=== PATIENT | female | born 1995 | race Caucasian/White ===

== ENCOUNTER 2021-11-24 19:26 | Emergency (ER) | payer MEDICAID, SELFPAY ==
--- NOTE | ~2021-11-24 | CT_ITS ---
EXAMINATION: CT HEAD WITHOUT CONTRAST CLINICAL INFORMATION: Headache, rule out bleed, mass effect COMPARISON: None TECHNIQUE: Contiguous axial imaging was performed from the skull base to vertex without intravenous administration of contrast. This CT examination was performed using dose optimization techniques as appropriate, variously including the following: *Automated exposure control *Adjustment of mA and/or kV according to patient size (this includes techniques or standardized protocols for targeted exams where dose is matched to indication/reason for exam; i.e. extremities or head) *Use of iterative reconstruction technique DLP: 677 mGy-cm FINDINGS: There is no evidence of acute intracranial hemorrhage or territorial infarction. No abnormal mass-effect or midline shift is seen. Espino to white matter differentiation is well preserved. No extra-axial fluid collections are identified. The ventricles are normal in size. There is no abnormal attenuation within the brain parenchyma. The osseous structures and soft tissues are normal. The mastoid air cells and visualized portions of the paranasal sinuses are well-aerated. CT/CT head/brain wo IV con IMPRESSION: No acute intracranial pathology.
[2021-11-24 19:50] VITALS: BP 122/70; PULSE 114; RESP 16; TEMP 36.3; O2SAT 99; BMI 17.9
[2021-11-24 20:40] LABS: MANUAL DIFF FLAG NO
[2021-11-24 20:47] LABS: Basophils Absolute Auto 0.1 X10*3/uL (0.0-0.2); Basophils Percent Auto 0.7 % (0-2); Eosinophils Absolute Auto 0.1 X10*3/uL (0.0-0.4); Eosinophils Percent Auto 1.2 % (0-4); Hematocrit 35.5 % (37.0-47.0); Imm Gran Abs Auto 0.02 X10*3/uL (0.00-0.03); Imm Gran Pct Auto 0.3 % (0.0-0.4); Lymphocytes Absolute Auto 1.1 X10*3/uL (1.2-4.9); Lymphocytes Percent Auto 15.2 % (20-40); Mean Corpuscular HGB Conc 33.8 g/dl (31.0-35.0); Mean Corpuscular Hemoglobin 29.6 pg (27.0-33.0); Mean Corpuscular Volume 87.4 fL (80.0-98.0); Monocytes Absolute Auto 0.3 X10*3/uL (0.1-1.2); Monocytes Percent Auto 4.1 % (2-11); Neutrophils Absolute Auto 5.8 x10*3/uL (2.0-8.3); Neutrophils Percent Auto 78.5 % (45-73); Platelet Count 182 X10*3/uL (160-400); Red Blood Count 4.06 X10*6/uL (4.20-5.50); Red Cell Distribution Width 12.3 % (11.0-16.0); White Blood Count 7.4 X10*3/uL (4.8-10.8)
[2021-11-24 21:05] LABS: Alanine Aminotransferase 13 U/L (0-31); Albumin Level 4.6 g/dL (3.5-5.0); Alkaline Phosphatase 38 U/L (39-117); Anion Gap 14 (12-20); Aspartate Amino Transferase 20 U/L (5-31); Bilirubin Total 0.3 mg/dL (0.0-1.0); Blood Urea Nitrogen 14 mg/dL (9-16); Carbon Dioxide 24 mmol/L (22-29); Chloride 106 mmol/L (96-108); Creatinine Clr Calc Pharmacy 96.5; Estimated Glomerular Filt Rate > 60; Glucose Random 97 mg/dL (60-115); Potassium 4.4 mmol/L (3.3-5.1); Sodium 140 mmol/L (135-145); Total Protein 7.2 g/dL (6.5-8.0)
[2021-11-25 00:49] VITALS: BP 109/65; PULSE 61; O2SAT 99
--- OUTSIDE RECORDS SUMMARY | 2021-11-25 00:58 | XMS_ITS | Continuity of Care Document ---
:1995 Author Organization [facility] Address [address] [place] [address]- Care Team Providers Name Role Phone Sangeetha Cardoza Primary Care Physician [id number] Date(s): 06/18/21 - 07/24/[address] [address]- Attending Physician: Blair Mcqueen NP Admitting Physician: Blair Mcqueen NP Referring Physician: Blair Mcqueen NP Medications benztropine 1 mg oral tablet Refills 0, Maintenance, 05/30/21 9:25:00 EDT, Partial fill upon patient request if the prescription is for a schedule II opioid drug. Start Date: 05/30/21 Status: Ordered[facility] GL[facility]ERIN [facility] Maintenance, 05/30/21 9:25:00 EDT, Supply Start Date: 05/30/21 Status: OrderedCVS VITAMIN D3 125 MCG SOFTGEL Maintenance, 05/30/21 9:25:00 EDT, Supply Start Date: 05/30/21 Status: OrderedhydrOXYzine pamoate 25 mg oral capsule 0 Refills, Maintenance, 05/30/21 9:25:00 EDT, Partial fill upon patient request if the prescription is for a schedule II opioid drug. Start Date: 05/30/21 Status: OrderedlevETIRAcetam 500 mg oral tablet 0 Refills, Maintenance, 05/30/21 9:25:00 EDT, Partial fill upon patient request if the prescription is for a schedule II opioid drug. Start Date: 05/30/21 Status: OrderedSenna-Time 8.6 mg oral tablet TAKE 1 TO 2 TABLETS BY MOUTH EVERY DAY NEEDED FOR 30 DAYS Start Date: 05/30/21 Status: Orderedtamsulosin 0.4 mg oral capsule Refills 0, Maintenance, 05/30/21 9:26:00 EDT, Partial fill upon patient request if the prescription is for a schedule II opioid drug. Start Date: 05/30/21 Status: OrderedVITAMIN D3 5,000 UNIT SOFTGEL Maintenance, 05/30/21 9:25:00 EDT, Supply Start Date: 05/30/21 Status: OrderedVraylar 1.5 mg oral capsule TAKE 1 CAPSULE BY MOUTH EVERY DAY FOR 30 DAYS Start Date: 05/30/21 Status: Orderedziprasidone 60 mg oral capsule 0 Refills, Maintenance, 05/30/21 9:25:00 EDT, Partial fill upon patient request if the prescription is for a schedule II opioid drug. Start Date: 05/30/21 Status: Ordered
--- NOTE | 2021-11-25 01:25 | ED.NAVMDI ---
HPI - Nausea/Vomiting/Diarrhea General Chief complaint: Nausea/Vomiting/Diarrhea Stated complaint: Abd Pain Time Seen by Provider: 11/25/21 00:52 Source: patient Mode of arrival: ambulatory Limitations: no limitations History of Present Illness HPI Narrative: 26-year-old female who presents emergency department for evaluation of headache, nausea, vomiting,abdominal pain, muscle pain since ( 4 days prior to evaluation). The patient has anorexia nervosa and has been in a partial outpatient program for approximately 3 weeks for her eating disorder. She states that on , while she was at the program, she developed low-grade fever, vomiting and diarrhea. She had to leave the program early and she attributes his symptoms to food poisoning from drinking at not. She states that she felt better the next day. She states that on Thursday morning ( 11/24/2021 ) she woke up not feeling well. She states that her stomach felt upset and she had 1 episode of vomiting. Since then she has had nausea. She also states that she has had body aches in her thighs, arms and lower back. She also complains of a headache which is been constant and is 5/10 at its worst. She points to her temporal areas and describes the pain is a sharp pain. She did take ibuprofen but states that she was not able to hold the medication down and caused her to vomit. 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 Past surgical history: Appendectomy, peg tube in the past, mouth surgery . Social history: She denies tobacco, alcohol and drug use. Social History Social History Advance Directives: Yes Advance Directives Information Provided: No Advance Directives on File: No Physical Exam Vital Signs: Vital Signs: Last Vital Signs Temp 97.4 F 11/24/21 19:50 Pulse 61 11/25/21 00:49 Resp 16 11/24/21 19:50 BP 109/65 11/25/21 00:49 Pulse Ox 99 11/25/21 00:49 O2 Del Method 11/25/21 00:49 BMI result Body Mass Index 17.9 Const: Other: very thin, pleasant, cooperative, female patient, does not appear to be in distress, answers all questions appropriately HEENT: Head: Yes normal to inspection, Yes normocephalic and Yes atraumatic Ears: external ears normal General nose exam: Normal external nose present Face and sinus: Yes normal facial exam Mouth: Normal oral and palatal mucosa present Throat: Yes posterior oropharynx normal Eyes: General: appearance normal, both eyes and all related structures Pupils: Equal, round and reactive pupils present Neck: Neck: Yes normal visual inspection, Yes no lymphadenopathy, Yes trachea midline and Yes supple Chest: Chest palpation & inspection: normal inspection of the chest and normal palpation of entire chest wall Resp: Effort & Inspection: normal respiratory effort and able to speak in complete sentences Auscultation: clear to auscultation bilaterally Cardio: Rate: regular rate Rhythm: regular rhythm Heart sounds: S1 normal heart sound present, S2 normal heart sound present and no murmurs GI: Inspection: Yes normal to inspection Palpation (GI): Soft to palpation, Tenderness to palpation present (GI) in the epigastrum ( mild) and no guarding Auscultation: normal bowel sounds : General: Yes no CVA tenderness Back/Spine/Pelvis: Back: no CVA tenderness Skin: General skin exam: no rashes or lesions noted Neuro: Cranial nerves: Yes CN's II-XII intact bilaterally and Yes Equal, round and reactive pupils present Cognition (Neuro): normal cognition Motor exam (neuro): 5/5 motor strength present throughout Extrem: General: Yes normal to inspection Psych: Appearance: grossly normal Speech and movement: Normal speech and movement present Affect: normal affect Attitude: cooperative Thought process: Normal thought process present Thought content: Normal thought content present Course Course Course Narrative: 26-year-old female who presents emergency department for evaluation of headache, nausea, vomiting, abdominal pain , fever and myalgias times 4 days. the patient's initial vital signs did reveal an elevated pulse of 114, repeat pulse was 61 otherwise vital signs were unremarkable. The patient did have epigastric tenderness on her abdominal exam otherwise are no other significant findings With a normal neurologic exam. Patient's laboratory evaluation revealed mild anemia with an H&H of 12 and 35 with a normal MCV. Patient's CMP was normal. this time I suspect the patient has an acute viral syndrome, she will be tested for COVID-19 and influenza. I did order normal saline x1 L. I also ordered Zofran 4 mg IV and Toradol 15 mg IV. 0218: The patient had minimal relief with the above treatment. Therefore I ordered morphine 4 mg IV and Reglan 5 mg IV. I will also obtain a CT scan of the patient's brain to rule out bleed or mass effect. The patient states she has a history of pituitary tumors. I suspect that the patient's symptoms are consistent viral syndrome. She does not have any nuchal rigidity and I do not think that she has meningitis. At the end of my shift, I did turn the patient over to my colleague, Dr. Caroline Johnson. MDM - Nausea/Vomiting/Diarrhea Lab Data Result diagrams: 11/24/21 20:35 11/24/21 20:35 Labs: Lab Results 11/24/21 11/24/21 11/25/21 Range/Units 20:35 20:35 01:33 WBC 7.4 (4.8-10.8) X10*3/uL RBC 4.06 L (4.20-5.50) X10*6/uL Hgb 12.0 (12.0-16.0) g/dl Hct 35.5 L (37.0-47.0) % MCV 87.4 (80.0-98.0) fL MCH 29.6 (27.0-33.0) pg MCHC 33.8 (31.0-35.0) g/dl RDW 12.3 (11.0-16.0) % Plt Count 182 (160-400) X10*3/uL MPV 11.0 (9.4-12.3) fL Immature Gran % (Auto) 0.3 (0.0-0.4) % Neut % (Auto) 78.5 H (45-73) % Lymph % (Auto) 15.2 L (20-40) % Desha % (Auto) 4.1 (2-11) % Eos % (Auto) 1.2 (0-4) % Baso % (Auto) 0.7 (0-2) % Lymph # (Auto) 1.1 L (1.2-4.9) X10*3/uL Desha # (Auto) 0.3 (0.1-1.2) X10*3/uL Eos # (Auto) 0.1 (0.0-0.4) X10*3/uL Baso # (Auto) 0.1 (0.0-0.2) X10*3/uL Abs Immat Gran (auto) 0.02 (0.00-0.03) X10*3/uL Absolute Neuts (auto) 5.8 (2.0-8.3) x10*3/uL Absolute Nucleated RBC 0.000 (0.0-0.012) X10*3/uL Nucleated RBC % (auto) 0.0 (0.0-0.2) /100WBC Sodium 140 (135-145) mmol/L Potassium 4.4 (3.3-5.1) mmol/L Chloride 106 (96-108) mmol/L Carbon Dioxide 24 (22-29) mmol/L Anion Gap 14 (12-20) BUN 14 (9-16) mg/dL Creatinine 0.69 (0.5-1.4) mg/dL Estim Creat Clear Calc 96.5 Estimated GFR > 60 Random Glucose 97 (60-115) mg/dL Calcium 10.0 (8.4-10.2) mg/dL Total Bilirubin 0.3 (0.0-1.0) mg/dL AST 20 (5-31) U/L ALT 13 (0-31) U/L Alkaline Phosphatase 38 L (39-117) U/L Total Protein 7.2 (6.5-8.0) g/dL Albumin 4.6 (3.5-5.0) g/dL COVID-19 (WIL) (Negative) COVID-19 Clin Com Influenza Type A (ROSSI) Negative (Negative) Influenza Type B (ROSSI) Negative (Negative) Influenza A & B Note See Note 11/25/21 Range/Units 01:33 WBC (4.8-10.8) X10*3/uL RBC (4.20-5.50) X10*6/uL Hgb (12.0-16.0) g/dl Hct (37.0-47.0) % MCV (80.0-98.0) fL MCH (27.0-33.0) pg MCHC (31.0-35.0) g/dl RDW (11.0-16.0) % Plt Count (160-400) X10*3/uL MPV (9.4-12.3) fL Immature Gran % (Auto) (0.0-0.4) % Neut % (Auto) (45-73) % Lymph % (Auto) (20-40) % Desha % (Auto) (2-11) % Eos % (Auto) (0-4) % Baso % (Auto) (0-2) % Lymph # (Auto) (1.2-4.9) X10*3/uL Desha # (Auto) (0.1-1.2) X10*3/uL Eos # (Auto) (0.0-0.4) X10*3/uL Baso # (Auto) (0.0-0.2) X10*3/uL Abs Immat Gran (auto) (0.00-0.03) X10*3/uL Absolute Neuts (auto) (2.0-8.3) x10*3/uL Absolute Nucleated RBC (0.0-0.012) X10*3/uL Nucleated RBC % (auto) (0.0-0.2) /100WBC Sodium (135-145) mmol/L Potassium (3.3-5.1) mmol/L Chloride (96-108) mmol/L Carbon Dioxide (22-29) mmol/L Anion Gap (12-20) BUN (9-16) mg/dL Creatinine (0.5-1.4) mg/dL Estim Creat Clear Calc Estimated GFR Random Glucose (60-115) mg/dL Calcium (8.4-10.2) mg/dL Total Bilirubin (0.0-1.0) mg/dL AST (5-31) U/L ALT (0-31) U/L Alkaline Phosphatase (39-117) U/L Total Protein (6.5-8.0) g/dL Albumin (3.5-5.0) g/dL COVID-19 (WIL) Negative (Negative) COVID-19 Clin Com See Note Influenza Type A (ROSSI) (Negative) Influenza Type B (ROSSI) (Negative) Influenza A & B Note Discharge Plan Discharge Clinical Impression: Viral syndrome Headache Qualifiers: Headache chronicity pattern: acute headache Patient Disposition: Still a Patient Instructions: Viral Syndrome (ED) Additional Instructions: your blood work was normal.
[2021-11-25] MEDS: 0.9 % Sodium Chloride 1,000 ML 999 ML IV (01:27)
[2021-11-25] MEDS: Ketorolac Tromethamine 15 MG/ML VIAL IVPUSH (01:34)
[2021-11-25] MEDS: ondansetron HCL 4 MG/2 ML VIAL IVPUSH (01:35)
[2021-11-25 01:56] LABS: COVID-19 Test Negative (Negative); IDNOW Serial# 16C4AD1C; Influenza A Negative (Negative); Influenza B2 Negative (Negative)
[2021-11-25] MEDS: Metoclopramide HCl 10 MG/2 ML VIAL 5 MG IVPUSH (02:37)
[2021-11-25] MEDS: Morphine Sulfate 4 MG/ML CARTRIDGE IVPUSH (02:37)
[2021-11-25 02:48] LABS: Appearance Urine Turbid; Color Urine Yellow; Glucose Urine UA Negative (Negative); Leukocyte Esterase Urine Small (1+) (Negative); Nitrite Urine Negative (Negative); UMIC TRIGGER UACC YES; Urine Blood Moderate (2+) (Negative); Urine Ketones 15 mg/dL (Negative); Urine Protein Trace mg/dL (Neg-Trace)
[2021-11-25 02:53] LABS: Bacteria Urine Trace (None Seen); Hyaline Casts Urine 0-2 /LPF (0-2); RBC Urine >20 /HPF (0-2); UACC Culture Trigger YES
[2021-11-25 04:00] VITALS: BP 102/67; PULSE 68; O2SAT 100
[2021-11-25 04:02] LABS: UPreg QC Valid YES; Urine Pregnancy NEGATIVE (NEGATIVE)
[2021-11-25] MEDS: Nitrofurantoin Monohyd/M-Cryst 100 MG CAPSULE PO (04:17)
== END 2021-11-25 04:18 | disposition home or self-care (01) ==
PROVIDERS: Emergency Medicine Emergency Medical Services; Emergency Provider Emergency Medicine
DX: B34.9 Viral infection, unspecified (principal); R51.9 Headache, unspecified; N39.0 Urinary tract infection, site not specified; Z20.822 Contact with and (suspected) exposure to COVID-19
CPT/HCPCS: 36415; 70450; 80053; 81001; 81025; 85025; 87086; 87147; 87502; 87635; 96361; 96374; 96375; 99284; J1885; J2270; J2405; J2765